=== PATIENT | female | born 1990 | race Caucasian/White ===

== ENCOUNTER → 2016-06-12 | Day surgery (SDC) | payer BC, OTHER ==
--- NOTE | 2016-06-11 21:55 | HHI.HP ---
HPI Chief Complaint Permanent sterilization Date Seen: Jun 12, 2016 Travel History International Travel<30 Days: No Contact w/Intl Traveler<30Days: No Known Affected Area: No History of Present Illness HPI Patient has requested permanent sterilization. She understands that she will not be able to have any more children. She also understands that the procedure increases her risks for ectopic . She is therefore admitted for outpatient surgery. Para: 2 : 2 Miscarriage: 0 : 0 History Past Medical History Narrative Medical Polycystic kidney disease Depression Anxiety Obstetric History Obstetric History Patient had 2 pregnancies and 2 vaginal deliveries Past Surgical History Narrative Surgical 2016 -- L/S cystectomy to remove a large dermoid cyst Family History Narrative Family History Mother -- malignant melanoma Social History Alcohol Use: No Tobacco Use: No Substance Abuse: No Allergies-Medications (Allergen,Severity, Reaction): Coded Allergies: No Known Allergies (Unverified , 01/27/16) Home Meds Reported Medications Miscellaneous ( Control Pills) Tab1 Tab PO DAILY 11/01/15 Discontinued Scripts Meloxicam (Mobic)15 Mg Tab15 Mg PO DAILY #20 TAB Prov:Glenn Roberts MD 01/27/16 Narrative Medication Gildess -- control pills Review of Systems General / Constitutional: No: Fever, Weight Gain, Chills, Other Eyes: No: Diploplia, Blurred Vision, Visual changes, Pain, Photophobia HENT: No: Headaches, Vertigo, Lightheadedness Cardiovascular: No: Irregular Rhythm, Chest Pain or Discomfort, Palpitations, Tachycardia, Syncope, Varicosities, Edema, Cyanosis Respiratory: No: Cough, Short of Breath, Other Gastrointestinal: No: Nausea, Vomiting, Diarrhea Genitourinary: No: Decreased Urinary Output, Oliguria Musculoskeletal: No: Limited ROM, Weakness, Cramping, Edema, Pain Skin: No Rash, No Itching, No Dryness, No Lumps, No Change in Pigmentation, No Change in Nails, No Alopecia, No Lesions Neurologic: No: Weakness, Dizziness, Syncope, Focal Abnormalities, Coordination Problem, Headache, Slurred Speech, Seizures Psychiatric: No: Depression, Suicidal Ideations, Homicidal Ideation Endocrine: No: Heat Intolerance, Cold Intolerance, Polydipsia, Polyuria, Other Physical Exam Narrative GENERAL: Well-nourished, well-developed patient. SKIN: Warm and dry. HEAD: Normocephalic and atraumatic. EYES: No scleral icterus. No injection or drainage. ENT: No nasal drainage noted. Mucous membranes pink. Airway patent. NECK: Supple, trachea midline. No JVD. CARDIOVASCULAR: Regular rate and rhythm without murmurs, gallops, or rubs. RESPIRATORY: Breath sounds equal bilaterally. No accessory muscle use. BREASTS: Bilateral exam showed no masses , no retractions, no nipple discharge. ABDOMEN/GI: Abdomen soft, non-tender, bowel sounds present, no rebound, no guarding GENITOURINARY: External Genitalia: intact and normal in appearance Uterus -- normal size, no adnexal masses EXTREMITIES: No cyanosis or edema. BACK: Nontender without obvious deformity. No CVA tenderness. NEUROLOGICAL: Awake and alert. Motor and sensory grossly within normal limits. Five out of 5 muscle strength in all muscle groups. Normal speech. Data Data Vital Signs Reviewed: Yes Assessment/Plan Problem List: (1) Encounter for female sterilization procedure Assessment and Plan 1. 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 discussed / reviewed the procedure -- laparoscopic tubal ligation 3. discussed the risks, benefits and alternatives of the procedure with the patient 4. discussed the risk of infection, bleeding, damage to vaginal burciaga and to internal organs (bowel, bladder, vessels, ureters, nerves), need for further treatment or procedures. 5. patient's questions were answered 6. she verbalized understanding 7. informed consent was obtained Va Villeda MD Jun 11, 2016 21:54
--- NOTE | 2016-06-11 22:29 | PD.OP ---
Operative Report Date of Surgery: Jun 12, 2016 Preoperative Diagnosis: (1) Encounter for female sterilization procedure (2) Endometriosis determined by laparoscopy Postoperative Diagnosis: (1) Encounter for female sterilization procedure (2) Endometriosis determined by laparoscopy Procedure: Laparoscopic bilateral tubal ligation Anesthesia: General Surgeon: Va Villeda Technical Services Specialist(s): Staff Operation and Findings: IVF: 750 ml + IV antibiotics given prior to surgery EBL: < 10 ml UO: 100 ml Findings: 1. pelvic adhesions 2. endometriosis 3. normal uterus, normal right ovary, left ovary surgically absent (previous surgery for ovarian mass) Specimens: none Complications: none Condition: stable Disposition: PACU Description of the procedure: The risks, benefits and alternatives of the procedure were discussed with patient. She wishes to proceed. Informed consent was obtained after questions were answered. The patient was then taken to the operating room with her IV running. She was placed in the supine position and was given general anesthesia without difficulties or complications. She was then placed in the dorsal lithotomy position and was prepped and draped in the usual sterile fashion. A bivalve speculum was placed inside the patient's vagina. The anterior aspect of the cervix was grasped with a single tooth tenaculum for manipulation. The cervix was carefully dilated. The uterus sounded to 8 cm. A AntCor uterine manipulator was placed inside the patient's uterus for manipulation. The rest of the instruments were removed from the patient's vagina.The surgeon changed gloves and attention was turned to the patient's abdomen. A vertical umbilical incision was made with the scalpel. A 5 mm trocar was carefully introduced inside the patient's abdomen. A pneumoperitoneum was created with CO2 gas. A survey of the patient's abdomen revealed normal anatomy. A survey of the patient's pelvis revealed the findings noted above. Another 5 mm trocar was placed inside the lower abdomen in the midline under direct visualization. Good hemostasis was noted. A Kleppinger was used to electrocauterize the right fallopian tube (about 1 inch section in the midline) . Scissors were used to cut the electrocauterized area. Excellent hemostasis was noted. The trocar in the lower abdomen was removed under direct visualization. Excellent hemostasis was noted. All instruments were removed from the patient's abdomen. The CO2 gas was carefully expressed out of the patient's abdomen. The umbilical fascial incision was closed with 0-Vicryl. The skin incisions were reapproximated with subcutaneous stitches using 4-0 Vicryl. Marcaine was injected in the skin incisions. Mastisol and steri strips were placed over the incisions. The patient tolerated the procedure well. She was successfully extubated and transferred to PACU in stable condition. Note: I discussed the surgical findings and procedures done with patient's . His questions were answered, he verbalized understanding and agreement. Va Villeda MD Jun 11, 2016 22:29
[~2016-06-12] MED LIST: HYDR-3534 PO; KETOROLAC TROMETHAMINE 30 MG/ML (IVP) VIAL IV PUSH ONE; LACTATED RINGER'S 1000 ML INJ 1,000 ML ONE; LIDOCAINE 1%/EPINEPHrine 1:100,000 SOLN 30 ML VIAL ONE; MIDAZOLAM HCL 2 MG/2 ML VIAL ONE; ONDANSETRON HCL 4 MG/2 ML VIAL IV PUSH ONE; PROPOFOL 200 MG/20 ML AMP IV ONE; Z.0.BCPILL PO; ceFAZolin 2 GM PREMIX 50 ML ONE; oxyCODONE/ACETAMINOPHEN 5 MG/325 MG TAB ONE
== END | disposition home or self-care (01) ==
LOC: ESDC 06:12
PROVIDERS: ATTEND Obstetrics & Gynecology
DX: Z30.2 Encounter for sterilization (principal); N80.9 Endometriosis, unspecified
CPT/HCPCS: J0690; J1885; J2250; J2405; J3010; J7120

== ENCOUNTER 2016-09-03 08:09 | Emergency (ER) | payer BC ==
[~2016-09-03] VITALS: Ht 160 cm; Wt 77.1 kg
[~2016-09-03 08:09] MED LIST changes: -HYDR-3534 PO; -KETOROLAC TROMETHAMINE 30 MG/ML (IVP) VIAL IV PUSH ONE; -LACTATED RINGER'S 1000 ML INJ 1,000 ML ONE; -LIDOCAINE 1%/EPINEPHrine 1:100,000 SOLN 30 ML VIAL ONE; -MIDAZOLAM HCL 2 MG/2 ML VIAL ONE; -ONDANSETRON HCL 4 MG/2 ML VIAL IV PUSH ONE; -PROPOFOL 200 MG/20 ML AMP IV ONE; -ceFAZolin 2 GM PREMIX 50 ML ONE; -oxyCODONE/ACETAMINOPHEN 5 MG/325 MG TAB ONE
[2016-09-03 08:14] VITALS: BP 138/93; PULSE 83; RESP 16; TEMP 98.3; O2SAT 100
[2016-09-03 08:35] LABS: BLOOD, URINE TRACE (NEG); GLUCOSE,URINE NEG (NEG); KETONE, URINE NEG (NEG); NITRITE,URINE NEG (NEG)
[2016-09-03 08:37] LABS: METHOD OF COLLECTION CLEAN CATCH
[2016-09-03 08:38] LABS: URINE COLOR YELLOW (YELLW/STRAW)
[2016-09-03 08:40] LABS: COMMENT (UR) CULT NOT INDICATED; CULTURE IF INDICATED CULT NOT INDICATED; RBC, URINE 0-3 /hpf (0-3); SQUAMOUS EPITHELIAL CELL URINE > 8 /hpf (0-5); WBC, URINE 0-2 /hpf (0-5)
[2016-09-03] MEDS ORDERED: SODIUM CHLOR 0.9% 1000 ML INJ 1,000 ML IV ONE (09:15)
[2016-09-03] MEDS ORDERED: ONDANSETRON HCL 4 MG/2 ML VIAL IV PUSH ONE (09:15)
[2016-09-03] MEDS ORDERED: HYDROmorphone HCL PF 1 MG/ML VIAL IV PUSH ONE (09:15)
--- NOTE | 2016-09-03 09:17 | PD ---
HPI Chief Complaint: Flank/Kidney Pain Time Seen by Provider: 08:59 Travel History International Travel<30 days: No Contact w/Intl Traveler<30days: No Traveled to known affect area: No History of Present Illness HPI This 26-year-old female who been having a lot of flank pain and abdominal pain. This has been Going on for several days. She has not been taking anything for pain. She has had a tubal ligation 2 months ago. She has a history of polycystic kidney disease. She has also had kidney stones in the past. She is not aware of fever or chills. There has not been any vomiting or diarrhea. She has noted some blood in the urine. PFSH Past Medical History Cardiovascular Problems: Yes (HTN) Diminished Hearing: No Genitourinary: Yes (POLYCYSTIC KIDNEY DISEASE) Kidney Stones: Yes ?: Not LMP: 08/30/16 : 2 Para: 1 Tubal Ligation: Yes Past Surgical History Gynecologic Surgery: Yes (LFT OOPHRECTOMY 09/2015 FOR MASS REMOVAL) Neurologic Surgery: Yes (CRANIAL SURGERY ) Social History Alcohol Use: No Tobacco Use: No Substance Use: No Allergies-Medications (Allergen,Severity, Reaction): Coded Allergies: No Known Allergies (Unverified , 09/03/16) Reported Meds & Prescriptions Reported Meds & Active Scripts Active No Active Prescriptions or Reported Medications Review of Systems General / Constitutional: No: Fever, Chills Eyes: No: Diploplia HENT: No: Headaches, Vertigo Cardiovascular: No: Chest Pain or Discomfort, Palpitations Respiratory: No: Cough, Shortness of Breath Gastrointestinal: Positive: Abdominal Pain, No: Nausea, Vomiting Genitourinary: Positive: Hematuria, Flank Pain Musculoskeletal: No: Myalgias Skin: No Rash, No Itching Physical Exam Narrative GENERAL: Well-developed female SKIN: Focused skin assessment warm/dry. HEAD: Atraumatic. Normocephalic. EYES: Pupils equal and round. No scleral icterus. No injection or drainage. ENT: No nasal bleeding or discharge. Mucous membranes pink and moist. NECK: Trachea midline. No JVD. CARDIOVASCULAR: Regular rate and rhythm. No murmur appreciated. RESPIRATORY: No accessory muscle use. Clear to auscultation. Breath sounds equal bilaterally. GASTROINTESTINAL: Abdomen soft, non-tender, nondistended. Hepatic and splenic margins not palpable. There is some bilateral flank tenderness MUSCULOSKELETAL: No obvious deformities. No clubbing. No cyanosis. No edema. NEUROLOGICAL: Awake and alert. No obvious cranial nerve deficits. Motor grossly within normal limits. Normal speech. PSYCHIATRIC: Appropriate mood and affect; insight and judgment normal. Data Data Last Documented VS Vital Signs Date Time Temp Pulse Resp B/P Pulse Ox O2 Delivery O2 Flow Rate FiO2 09/03/16 08:14 98.3 83 16 138/93 100 Orders Urinalysis - C+S If Indicated (09/03/16 08:16) Complete Blood Count With Diff (09/03/16 09:12) Basic Metabolic Panel (Bmp) (09/03/16 09:12) Ct Abd/Pel W/O Iv Contrast (09/03/16 09:12) Sodium Chlor 0.9% 1000 Ml Inj (Ns 1000 M (09/03/16 09:15) Ondansetron Inj (Zofran Inj) (09/03/16 09:15) Hydromorphone Pf Inj (Dilaudid Pf Inj) (09/03/16 09:15) Labs Laboratory Tests Test 09/03/16 09/03/16 08:18 09:30 Urine Collection Type CLEAN CATCH Urine Color YELLOW Urine Turbidity CLEAR Urine pH 6.0 Urine Specific [place] 1.013 Urine Protein NEG mg/dL Urine Glucose (UA) NEG mg/dL Urine Ketones NEG mg/dL Urine Occult Blood TRACE Urine Nitrite NEG Urine Bilirubin NEG Urine Leukocyte Esterase NEG Urine RBC 0-3 /hpf Urine WBC 0-2 /hpf Urine Squamous Epithelial > 8 /hpf Cells Microscopic Urinalysis Comment CULT NOT INDICATED Urine Collection Time 08:18 White Blood Count 7.1 TH/MM3 Red Blood Count 4.47 MIL/MM3 Hemoglobin 13.0 GM/DL Hematocrit 39.1 % Mean Corpuscular Volume 87.6 FL Mean Corpuscular Hemoglobin 29.2 PG Mean Corpuscular Hemoglobin 33.3 % Concent Red Cell Distribution Width 13.9 % Platelet Count 419 TH/MM3 Mean Platelet Volume 8.2 FL Neutrophils (%) (Auto) 72.8 % Lymphocytes (%) (Auto) 10.4 % Monocytes (%) (Auto) 9.7 % Eosinophils (%) (Auto) 3.0 % Basophils (%) (Auto) 4.1 % Neutrophils # (Auto) 5.2 TH/MM3 Lymphocytes # (Auto) 0.7 TH/MM3 Monocytes # (Auto) 0.7 TH/MM3 Eosinophils # (Auto) 0.2 TH/MM3 Basophils # (Auto) 0.3 TH/MM3 CBC Comment DIFF FINAL Differential Comment Sodium Level 141 MEQ/L Potassium Level 3.9 MEQ/L Chloride Level 105 MEQ/L Carbon Dioxide Level 26.3 MEQ/L Anion Gap 10 MEQ/L Blood Urea Nitrogen 19 MG/DL Creatinine 0.95 MG/DL Estimat Glomerular Filtration 70 ML/MIN Rate Random Glucose 85 MG/DL Calcium Level 8.6 MG/DL MDM Medical Decision Making Medical Screen Exam Complete: Yes Emergency Medical Condition: Yes Medical Record Reviewed: Yes Differential Diagnosis Differential includes UTI, renal colic, polycystic kidney Narrative Course AcT scan was done and there are multiple renal stones. There is not hydronephrosis or ureteral stone at this time. Patient does have pain fairly persistently. She has been taking some Tylenol which does not always help. I will prescribe some Lortab. I don't think she should be taking anti- inflammatory medication Diagnosis Primary Impression: Polycystic kidney disease Scripts Hydrocodone-Acetaminophen (Lortab)7.5-325 Mg Tab1 Tab PO Q4H PRN (PAIN) #30 TAB Ref 0 Prov:Surya Bauer MD 09/03/16 Disposition: 01 DISCHARGE HOME Condition: Stable Surya Bauer MD Sep 03, 2016 09:17
[2016-09-03 09:36] LABS: AUTOMATED NEUTROPHIL # 5.2 TH/MM3 (1.8-7.7); BASOPHIL # 0.3 TH/MM3 (0-0.2); BASOPHIL % 4.1 % (0.0-2.0); EOSINOPHIL # 0.2 TH/MM3 (0-0.4); HEMATOCRIT 39.1 % (35.0-46.0); HEMO FLAGS DIFF FINAL; LYMPH % 10.4 % (9.0-44.0); LYMPHOCYTE # 0.7 TH/MM3 (1.0-4.8); MEAN CELL VOLUME 87.6 FL (80.0-100.0); MEAN CORPUSCULAR HEMOGLOBIN 29.2 PG (27.0-34.0); MEAN CORPUSCULAR HGB CONC 33.3 % (32.0-36.0); MONO % 9.7 % (0.0-8.0); NEUT % 72.8 % (16.0-70.0); PLATELET COUNT 419 TH/MM3 (150-450); RED BLOOD COUNT 4.47 MIL/MM3 (4.00-5.30); RED CELL DISTRIBUTION WIDTH 13.9 % (11.6-17.2); WHITE BLOOD COUNT 7.1 TH/MM3 (4.0-11.0)
--- NOTE | 2016-09-03 09:50 | RADHPO ---
EXAM DATE/TIME: 09/03/2016 09:26 [facility] COMPARISON: CT ABDOMEN & PELVIS W/O CONTRAST, January 27, 2016, 17:10. INDICATIONS : Bilateral flank pain. Hematuria. ORAL CONTRAST: No oral contrast ingested. RADIATION DOSE: 14.16 CTDIvol (mGy) MEDICAL HISTORY : Renal calculi. Hypertension. Polycystic kidney disease. SURGICAL HISTORY : Tubal ligation. Left oophorectomy. ENCOUNTER: Initial ACUITY: 2 weeks PAIN SCALE: 7/10 LOCATION: Bilateral flank TECHNIQUE: Volumetric scanning of the abdomen and pelvis was performed. Using automated exposure control and ad justment of the mA and/or kV according to patient size, radiation dose was kept as low as reasonably achievable to obtain optimal diagnostic quality images. FINDINGS: CT Abdomen: The kidneys are enlarged bilaterally measuring 11.1 cm on the right and 14.8 cm on the le ft with numerous cortical cysts the largest one measures 2.9 cm on the right not significantly change d. The previously seen 4-5 mm stone in the right lower pole is larger measuring 5-6 mm in size. There are additional stones in the right kidney for a total of 7 separate stones ranging between a millime ter and 3 mm in size a slight degree of milk of calcium deposits in some of the cysts. In the left ki dney there are 2 separate stones measured measuring 3 mm and 4 mm may be slightly larger with some de gree of milk of calcium deposits with some of the cysts. There is no ureteral stone and there is no h ydronephrosis on either side. The liver, spleen, pancreas, adrenals are unremarkable. There is no ev idence for any appreciable pathological adenopathy, free fluid, or bowel obstruction. CT pelvis: There is no evidence for mass, abscess formation, or any significant adenopathy within the pelvis. CONCLUSION: Autosomal dominant polycystic kidney disease with multiple stones bilaterally some of which are slightly larger without any ureteral stone or hydronephrosis. Yamilet Cruz MD on September 03, 2016 at 9:41 Board Certified Radiologist. This report was verified electronically.
[2016-09-03 10:04] LABS: POTASSIUM 3.9 MEQ/L (3.5-5.1)
[2016-09-03 10:08] LABS: BICARBONATE 26.3 MEQ/L (21.0-32.0)
[2016-09-03] MEDS ORDERED: HYDR-3534 PO (10:19)
[2016-09-03 10:52] VITALS: BP 145/94; PULSE 83; RESP 14; O2SAT 100
== END 2016-09-03 11:24 | disposition home or self-care (01) ==
LOC: PHED 08:09
DX: Q61.3 Polycystic kidney, unspecified (principal); R31.9 Hematuria, unspecified; I10 Essential (primary) hypertension; Z87.442 Personal history of urinary calculi
CPT/HCPCS: 74176; 80048; 81001; 85025; 96361; 96374; 96375; 99284; J1170; J2405; J7030

== ENCOUNTER 2017-01-22 04:31 | Emergency (ER) | payer BC ==
[~2017-01-22] VITALS: Ht 162.6 cm; Wt 79.3 kg
[~2017-01-22 04:31] MED LIST changes: +CIPR-9 PO; +FLUO-1 PO; +LISI10TA3 PO; +MEDR4PAK PO; -Z.0.BCPILL PO
[2017-01-22 04:36] VITALS: BP 144/82; PULSE 75; RESP 14; TEMP 98; O2SAT 100
[2017-01-22] MEDS ORDERED: SODIUM CHLOR 0.9% 1000 ML INJ 1,000 ML IV ONE (04:47)
[2017-01-22 04:49] VITALS: BP 144/82; PULSE 75; RESP 18; TEMP 98; O2SAT 100
--- NOTE | 2017-01-22 04:58 | PD ---
HPI Chief Complaint: GI Complaint Time Seen by Provider: 04:47 Travel History International Travel<30 days: No Contact w/Intl Traveler<30days: No Traveled to known affect area: No History of Present Illness HPI 26-year-old female presents to the emergency department by private transportation for complaint of flank pain. Patient thinks that she is having exacerbation of her kidney stone history. Patient has history of polycystic kidney disease and ovarian cyst. Patient states that pain is moderate to severe. Patient's had associated nausea without vomiting. Patient denies dysuria frequency urgency. Patient denies vaginal bleeding or vaginal discharge. Patient states menstrual cycle is due soon. Patient denies . Patient is unable to identify exacerbating or alleviating factors. No fever or chills. PFSH Past Medical History Narrative Medical HTN, PCKD, kidney stones, anxiety, UTI's, oophorectomy, tubal ligation; no tobacco; nurses note reviewed Cardiovascular Problems: Yes (HTN) Diminished Hearing: No Genitourinary: Yes (POLYCYSTIC KIDNEY DISEASE) Kidney Stones: Yes ?: Unknown LMP: 12/22/16 : 2 Para: 1 Tubal Ligation: Yes Past Surgical History Gynecologic Surgery: Yes (LFT OOPHRECTOMY 09/2015 FOR MASS REMOVAL) Neurologic Surgery: Yes (CRANIAL SURGERY INFANT) Social History Alcohol Use: No Tobacco Use: No Substance Use: No Allergies-Medications (Allergen,Severity, Reaction): Coded Allergies: No Known Allergies (Unverified , 01/22/17) Reported Meds & Prescriptions Reported Meds & Active Scripts Active Prozac (Fluoxetine HCl) 10 Mg Cap 10 Mg PO DAILY Lisinopril 10 Mg Tab 10 Mg PO DAILY Review of Systems Except as stated in HPI: all other systems reviewed are Neg General / Constitutional: No: Fever, Chills HENT: No: Congestion Cardiovascular: No: Chest Pain or Discomfort Respiratory: No: Shortness of Breath Gastrointestinal: Positive: Nausea, No: Vomiting, Diarrhea Genitourinary: Positive: Frequency, Flank Pain Musculoskeletal: No: Myalgias, Arthralgias Skin: No Rash, No Itching Neurologic: No: Weakness Psychiatric: No: Anxiety Hematologic/Lymphatic: No: Lymph Node Enlargement Physical Exam Narrative GENERAL: Well-developed well-nourished female in no acute distress no respiratory distress skin: Nontoxic movement SKIN: Warm and dry. HEAD: Normocephalic. EYES: No scleral icterus. No injection or drainage. NECK: Supple, trachea midline. No JVD or lymphadenopathy. CARDIOVASCULAR: Regular rate and rhythm without murmurs, gallops, or rubs. RESPIRATORY: Breath sounds equal bilaterally. No accessory muscle use. GASTROINTESTINAL: Abdomen soft, diffusely tender to palpation without guarding or rebound, nondistended. MUSCULOSKELETAL: No cyanosis, or edema. BACK: Nontender without obvious deformity. Reports bilateral CVA tenderness to percussion. Data Data Last Documented VS Vital Signs Date Time Temp Pulse Resp B/P (MAP) Pulse Ox O2 Delivery O2 Flow Rate FiO2 01/22/17 04:52 18 01/22/17 04:49 98.0 75 144/82 (102) 100 Orders Orders Complete Blood Count With Diff (01/22/17 04:47) Basic Metabolic Panel (Bmp) (01/22/17 04:47) Urinalysis - C+S If Indicated (01/22/17 04:47) Ecg Monitoring (01/22/17 04:47) Iv Access Insert/Monitor (01/22/17 04:47) Ondansetron Inj (Zofran Inj) (01/22/17 05:00) Sodium Chloride 0.9% Flush (Ns Flush) (01/22/17 05:00) Sodium Chlor 0.9% 1000 Ml Inj (Ns 1000 M (01/22/17 04:47) Morphine Inj (Morphine Inj) (01/22/17 05:00) Ed Urine Pregnancytest Poc (01/22/17 04:47) Ct Abd/Pel W/O Iv Contrast (01/22/17 ) Labs Laboratory Tests Test 01/22/17 05:00 White Blood Count 6.9 TH/MM3 Red Blood Count 4.63 MIL/MM3 Hemoglobin 13.1 GM/DL Hematocrit 39.8 % Mean Corpuscular Volume 86.0 FL Mean Corpuscular Hemoglobin 28.3 PG Mean Corpuscular Hemoglobin Concent 32.9 % Red Cell Distribution Width 13.7 % Platelet Count 481 TH/MM3 Mean Platelet Volume 7.8 FL Neutrophils (%) (Auto) 63.3 % Lymphocytes (%) (Auto) 22.8 % Monocytes (%) (Auto) 8.7 % Eosinophils (%) (Auto) 4.5 % Basophils (%) (Auto) 0.7 % Neutrophils # (Auto) 4.4 TH/MM3 Lymphocytes # (Auto) 1.6 TH/MM3 Monocytes # (Auto) 0.6 TH/MM3 Eosinophils # (Auto) 0.3 TH/MM3 Basophils # (Auto) 0.0 TH/MM3 CBC Comment DIFF FINAL Differential Comment Urine Color STRAW Urine Turbidity SLIGHT Urine pH 7.0 Urine Specific [place] 1.015 Urine Protein NEG mg/dL Urine Glucose (UA) NEG mg/dL Urine Ketones NEG mg/dL Urine Occult Blood LARGE Urine Nitrite NEG Urine Bilirubin NEG Urine Leukocyte Esterase NEG Urine RBC 20-24 /hpf Urine WBC 3-5 /hpf Urine Squamous Epithelial Cells 0-5 /hpf Urine Bacteria OCC /hpf Microscopic Urinalysis Comment CULT NOT INDICATED Blood Urea Nitrogen 12 MG/DL Creatinine 0.93 MG/DL Random Glucose 90 MG/DL Calcium Level 8.9 MG/DL Sodium Level 140 MEQ/L Potassium Level 3.9 MEQ/L Chloride Level 106 MEQ/L Carbon Dioxide Level 25.8 MEQ/L Anion Gap 8 MEQ/L Estimat Glomerular Filtration Rate 72 ML/MIN [facility] Medical Decision Making Medical Screen Exam Complete: Yes Emergency Medical Condition: Yes Medical Record Reviewed: Yes Interpretation(s) POC hcg: negative UA: large blood CBC & BMP Diagram 01/22/17 05:00 Calcium Level 8.9 Vital Signs Date Time Temp Pulse Resp B/P (MAP) Pulse Ox O2 Delivery O2 Flow Rate FiO2 01/22/17 04:52 18 01/22/17 04:49 98.0 75 18 144/82 (102) 100 01/22/17 04:36 98.0 75 14 144/82 (102) 100 Differential Diagnosis Abdominal pain, flank pain, obstructive uropathy, ruptured renal cyst, , ectopic , UTI Narrative Course Specimens collected and sent for resulting Brittany Vizcaino MD Jan 22, 2017 04:58
[2017-01-22] MEDS ORDERED: MORPHINE SULFATE 4 MG/ML INJ IV PUSH ONE (05:00)
[2017-01-22] MEDS ORDERED: SODIUM CHLORIDE 0.9% FLUSH 10 ML FLUSH IVF PRN (05:00)
[2017-01-22] MEDS ORDERED: ONDANSETRON HCL 4 MG/2 ML VIAL IVP ONE (05:00)
[2017-01-22 05:12] LABS: BLOOD, URINE LARGE (NEG); GLUCOSE,URINE NEG (NEG); KETONE, URINE NEG (NEG); NITRITE,URINE NEG (NEG)
[2017-01-22 05:14] LABS: AUTOMATED NEUTROPHIL # 4.4 TH/MM3 (1.8-7.7); BASOPHIL % 0.7 % (0.0-2.0); EOSINOPHIL # 0.3 TH/MM3 (0-0.4); EOSINOPHIL % 4.5 % (0.0-4.0); HEMATOCRIT 39.8 % (35.0-46.0); HEMO FLAGS DIFF FINAL; LYMPH % 22.8 % (9.0-44.0); LYMPHOCYTE # 1.6 TH/MM3 (1.0-4.8); MEAN CORPUSCULAR HEMOGLOBIN 28.3 PG (27.0-34.0); MEAN CORPUSCULAR HGB CONC 32.9 % (32.0-36.0); MONO % 8.7 % (0.0-8.0); NEUT % 63.3 % (16.0-70.0); PLATELET COUNT 481 TH/MM3 (150-450); RED BLOOD COUNT 4.63 MIL/MM3 (4.00-5.30); RED CELL DISTRIBUTION WIDTH 13.7 % (11.6-17.2); WHITE BLOOD COUNT 6.9 TH/MM3 (4.0-11.0)
[2017-01-22 05:20] LABS: BACTERIA, URINE OCC /hpf; SQUAMOUS EPITHELIAL CELL URINE 0-5 /hpf (0-5); URINE COLOR STRAW (YELLW/STRAW)
[2017-01-22 05:21] LABS: COMMENT (UR) CULT NOT INDICATED; CULTURE IF INDICATED CULT NOT INDICATED
[2017-01-22 05:22] LABS: POTASSIUM 3.9 MEQ/L (3.5-5.1)
[2017-01-22 05:25] LABS: BICARBONATE 25.8 MEQ/L (21.0-32.0)
[2017-01-22 06:19] VITALS: BP 129/90; PULSE 68; RESP 18; O2SAT 99
--- NOTE | 2017-01-22 06:35 | RADRPT ---
EXAM DATE/TIME: 01/22/2017 05:37 [facility] COMPARISON: CT ABDOMEN & PELVIS W/O CONTRAST, September 03, 2016, 9:26. INDICATIONS : Lower abdominal and back pain for 2 weeks. ORAL CONTRAST: No oral contrast ingested. RADIATION DOSE: 12.02 CTDIvol (mGy) MEDICAL HISTORY : Renal calculi. Hypertension. polycystic kidney disease SURGICAL HISTORY : Tubal ligation. Left oophrectomy ENCOUNTER: Initial ACUITY: 2 weeks PAIN SCALE: 9/10 LOCATION: Bilateral lower quadrant TECHNIQUE: Volumetric scanning of the abdomen and pelvis was performed. Using automated exposure control and ad justment of the mA and/or kV according to patient size, radiation dose was kept as low as reasonably achievable to obtain optimal diagnostic quality images. DICOM format image data is available electro nically for review and comparison. FINDINGS: LOWER LUNGS: The visualized lower lungs are clear. LIVER: Homogeneous density without lesion. There is no dilation of the biliary tree. No calcified gallston es. SPLEEN: Normal size without lesion. PANCREAS: Within normal limits. KIDNEYS: Kidneys are again enlarged bilaterally with numerous bilateral cysts. Several cysts are iso-to hyperd ense and are unchanged in appearance from prior exam. There are multiple right-sided calcified calcul i ranging in size from 1 mm to 6 mm in the mid posterior right kidney. These appear unchanged from pr ior exam. A there are 2 calcified renal calculi measuring approximately 3-4 mm in the inferior pole o f the left kidney and are also unchanged from prior exam. No new renal calculi are demonstrated. Ther e is no hydronephrosis or ureteral calculi. ADRENAL GLANDS: Within normal limits. VASCULAR: There is no aortic aneurysm. BOWEL/MESENTERY: The stomach, small bowel, and colon demonstrate no acute abnormality. Appendix is not directly visual ized however there is no significant inflammatory changes in the pericecal region. There is no free i ntraperitoneal air or fluid. ABDOMINAL WALL: Within normal limits. RETROPERITONEUM: There is no lymphadenopathy. BLADDER: Mildly distended without evidence for radiopaque calculi. REPRODUCTIVE: Within normal limits. INGUINAL: There is no lymphadenopathy or hernia. MUSCULOSKELETAL: Within normal limits for patient age. CONCLUSION: 1. Changes consistent with autosomal dominant polycystic kidney disease with multiple bilateral stabl e nonobstructing renal calculi. No evidence for obstructive uropathy. 2. Appendix is not directly visualized. However, there is no significant inflammatory changes in the pericecal region. 3. Otherwise, unremarkable CT examination of the abdomen and pelvis. Leopoldo Mike MD on January 22, 2017 at 6:25 Board Certified Radiologist. This report was verified electronically.
[2017-01-22] MEDS ORDERED: PERC5TAB12 PO (06:50)
[2017-01-22] MEDS ORDERED: ZOFR4TAB3 SL (06:50)
== END 2017-01-22 07:15 | disposition home or self-care (01) ==
LOC: PHED 04:31
DX: N23 Unspecified renal colic (principal); Q61.2 Polycystic kidney, adult type
CPT/HCPCS: 74176; 80048; 81001; 84703; 85025; 96361; 96374; 96375; 99285; J2270; J2405; J7030

== ENCOUNTER → 2017-03-09 | Day surgery (SDC) | payer BC ==
[~2017-03-09] VITALS: Ht 162.6 cm; Wt 75.0 kg
[~2017-03-09] MED LIST changes: +AMPICILLIN/SULBAC 3 GM/NS 100 ML IV PRN; +CHLORHEXIDINE GLUCONATE 2 % 1 PACK (2 CLOTHS) TOPICAL PRN; -CIPR-9 PO; +FAMOTIDINE 20 MG/2 ML VIAL ONE; +INSULIN HUMAN REGULAR 1,000 UNITS/10 ML VIAL SQ PRN; +LACTATED RINGER'S 1000 ML IV PRN; -MEDR4PAK PO; +METOPROLOL TARTRATE 25 MG TAB PO PRN; +MICROFIBRILLAR COLLAGEN HEMOSTAT 1 GM PKT ONE; +MIDAZOLAM HCL 2 MG/2 ML VIAL ONE; +MORPHINE SULFATE 4 MG/ML INJ ONE; +ONDANSETRON HCL 4 MG/2 ML VIAL IV PUSH ONE; +ONDANSETRON HCL 4 MG/2 ML VIAL ONE; +OXYMETAZOLINE HCL 0.05% 15 ML NASAL SPRAY ONE; +PERC5TAB12 PO; +POVIDONE IODINE 5% (ANTISEPSIS KIT) 4 APPLICATIONS EACH NARE PRN; +PROPOFOL 200 MG/20 ML AMP IV ONE; +SODIUM CHLOR 0.9% 1000 ML INJ 1,000 ML ONE; +SODIUM CHLORID 0.9% 500 ML IV PRN; +SODIUM CHLORIDE 0.9% INJ 100 ML ONE; +ZOFR4TAB3 SL
[2017-03-09 13:15] VITALS: PULSE 89
[2017-03-09 15:15] VITALS: BP 148/90; PULSE 90; RESP 16; TEMP 98.7; O2SAT 99
--- NOTE | 2017-03-09 22:06 | MP ---
cc: BETY HO MD DATE OF SURGERY 03/09/17 PREOPERATIVE DIAGNOSIS 1. Adenotonsillar hypertrophy 2. Chronic tonsillitis POSTOPERATIVE DIAGNOSIS 1. Adenotonsillar hypertrophy 2. Chronic tonsillitis OPERATION PERFORMED Adenotonsillectomy INDICATIONS Documented history and physical. DESCRIPTION OF OPERATION The patient was taken to OR #2 and placed in the supine position. Following induction of general anesthesia and intubation, a shoulder roll, a Kevin head drape and a McIvor mouth gag were put in place. The tonsils were removed using the ArthroCare Coblator technique. Numerous sites of venous and arterial bleeding were cauterized using the bipolar and monopolar cautery. The tonsil fossa were packed with tonsil sponge packs saturated in Oxymetazoline which had been in place for a period of 3 minutes. They were then removed and replaced with Avitene microfibrils. Next, the adenoids were removed using the suction Bovie at 45 serra and the stomach was aspirated of several mL of cloudy gastric contents using a #18 [place] sump NG tube. When this was completed, the mouth gag was removed and the procedure was terminated. The patient was reversed from anesthesia and taken to recovery in good condition. There were no complications. Blood loss was 16 mL. MD RICCARDO Rouse/ /1:01 PM /9:59 PM
== END | disposition home or self-care (01) ==
LOC: PHSDC 08:19
PROVIDERS: ATTEND Otolaryngology
DX: J35.01 Chronic tonsillitis (principal); J35.3 Hypertrophy of tonsils with hypertrophy of adenoids; R49.0 Dysphonia
CPT/HCPCS: 00170; 42821; 88304; J0295; J2250; J2270; J2405; J3010; J7030

== ENCOUNTER 2017-08-09 16:01 | Emergency (ER) | payer BC ==
[~2017-08-09] VITALS: Ht 165.1 cm; Wt 88.7 kg
[~2017-08-09 16:01] MED LIST changes: +ALPR.5 PO; -AMPICILLIN/SULBAC 3 GM/NS 100 ML IV PRN; -CHLORHEXIDINE GLUCONATE 2 % 1 PACK (2 CLOTHS) TOPICAL PRN; +CIPR0.3S RIGHT EAR; +DIFL150T PO; -FAMOTIDINE 20 MG/2 ML VIAL ONE; -INSULIN HUMAN REGULAR 1,000 UNITS/10 ML VIAL SQ PRN; -LACTATED RINGER'S 1000 ML IV PRN; +LUNE1TAB8 PO; +MACR100C2 PO; +MECL-62 PO; -METOPROLOL TARTRATE 25 MG TAB PO PRN; -MICROFIBRILLAR COLLAGEN HEMOSTAT 1 GM PKT ONE; -MIDAZOLAM HCL 2 MG/2 ML VIAL ONE; -MORPHINE SULFATE 4 MG/ML INJ ONE; -ONDANSETRON HCL 4 MG/2 ML VIAL IV PUSH ONE; -ONDANSETRON HCL 4 MG/2 ML VIAL ONE; -OXYMETAZOLINE HCL 0.05% 15 ML NASAL SPRAY ONE; -PERC5TAB12 PO; -POVIDONE IODINE 5% (ANTISEPSIS KIT) 4 APPLICATIONS EACH NARE PRN; -PROPOFOL 200 MG/20 ML AMP IV ONE; -SODIUM CHLOR 0.9% 1000 ML INJ 1,000 ML ONE; -SODIUM CHLORID 0.9% 500 ML IV PRN; -SODIUM CHLORIDE 0.9% INJ 100 ML ONE; -ZOFR4TAB3 SL
[2017-08-09 16:03] VITALS: BP 118/77; PULSE 72; RESP 16; TEMP 98.7; O2SAT 100
--- NOTE | 2017-08-09 16:15 | PD ---
HPI Chief Complaint: Flank/Kidney Pain Time Seen by Provider: 16:15 Travel History International Travel<30 days: No Contact w/Intl Traveler<30days: No Traveled to known affect area: No History of Present Illness HPI 27-year-old female came to the emergency room with history of left flank pain for past 3 days. Patient says she has history of flank pain and frequent UTIs. She has polycystic kidney disease. She sees a restaurant host/hostess for the polycystic kidney disease. As per her multiple blood test showed acceptable renal function. No history of fever or chills. No history of nausea vomiting. Vital signs were stable. No history of fever or chills. No history of hematuria. PFSH Past Medical History Narrative Medical List of her past medical, surgical, social and family history is reviewed from the nursing note. Cancer: No Cardiovascular Problems: No Diabetes: No Diminished Hearing: No Endocrine: No Genitourinary: Yes (POLYCYSTIC KIDNEY DISEASE) Hepatitis: No Immune Disorder: No Kidney Stones: Yes Musculoskeletal: No Neurologic: No Psychiatric: No Reproductive: No Respiratory: No Thyroid Disease: No ?: Not : 2 Para: 1 Tubal Ligation: Yes Past Surgical History Abdominal Surgery: No AICD: No Cardiac Surgery: No Ear Surgery: No Endocrine Surgery: No Eye Surgery: No Genitourinary Surgery: No Gynecologic Surgery: Yes (LFT OOPHRECTOMY 09/2015 FOR MASS REMOVAL, TUBAL LIGATION) Joint Replacement: No Neurologic Surgery: Yes (CRANIAL SURGERY INFANT) Oral Surgery: No Pacemaker: No Thoracic Surgery: No Social History Alcohol Use: No Tobacco Use: No Substance Use: No Allergies-Medications (Allergen,Severity, Reaction): Coded Allergies: No Known Allergies (Verified Allergy, Unknown, 08/09/17) Comments No known drug allergies. Reported Meds & Prescriptions Reported Meds & Active Scripts Active Lisinopril 10 Mg Tab 10 Mg PO DAILY Reported Abilify (Aripiprazole) 15 Mg Tab 15 Mg PO DAILY Xanax (Alprazolam) 0.5 Mg Tab 0.5 Mg PO Q8H PRN Lunesta (Eszopiclone) 1 Mg Tab 1 Mg PO HS PRN Narrative Medication List of her home medications reviewed from the nursing note. Review of Systems Except as stated in HPI: all other systems reviewed are Neg Genitourinary: Positive: Flank Pain Physical Exam Narrative GENERAL: Awake, alert, no obvious distress SKIN: Focused skin assessment warm/dry. HEAD: Atraumatic. Normocephalic. EYES: Pupils equal and round. No scleral icterus. No injection or drainage. ENT: No nasal bleeding or discharge. Mucous membranes pink and moist. NECK: Trachea midline. No JVD. CARDIOVASCULAR: Regular rate and rhythm. No murmur appreciated. RESPIRATORY: No accessory muscle use. Clear to auscultation. Breath sounds equal bilaterally. GASTROINTESTINAL: Abdomen soft, non-tender, nondistended. Hepatic and splenic margins not palpable. MUSCULOSKELETAL: No obvious deformities. No clubbing. No cyanosis. No edema. NEUROLOGICAL: Awake and alert. No obvious cranial nerve deficits. Motor grossly within normal limits. Normal speech. PSYCHIATRIC: Appropriate mood and affect; insight and judgment normal. Data Data Last Documented VS Orders Orders Complete Blood Count With Diff (08/09/17 16:31) Basic Metabolic Panel (Bmp) (08/09/17 16:31) Urinalysis - C+S If Indicated (08/09/17 16:31) Ed Urine Pregnancytest Poc (08/09/17 16:31) Ecg Monitoring (08/09/17 16:31) Iv Access Insert/Monitor (08/09/17 16:31) Sodium Chloride 0.9% Flush (Ns Flush) (08/09/17 16:45) Acetamin-Hydrocod 325-5 Mg ([place] 5-325 (08/09/17 16:45) Ed Discharge Order (08/09/17 17:36) Labs Laboratory Tests Test 08/09/17 16:58 White Blood Count 10.1 TH/MM3 Red Blood Count 4.32 MIL/MM3 Hemoglobin 11.6 GM/DL Hematocrit 35.5 % Mean Corpuscular Volume 82.1 FL Mean Corpuscular Hemoglobin 26.9 PG Mean Corpuscular Hemoglobin Concent 32.8 % Red Cell Distribution Width 14.9 % Platelet Count 521 TH/MM3 Mean Platelet Volume 7.7 FL Neutrophils (%) (Auto) 61.4 % Lymphocytes (%) (Auto) 22.9 % Monocytes (%) (Auto) 6.7 % Eosinophils (%) (Auto) 7.2 % Basophils (%) (Auto) 1.8 % Neutrophils # (Auto) 6.2 TH/MM3 Lymphocytes # (Auto) 2.3 TH/MM3 Monocytes # (Auto) 0.7 TH/MM3 Eosinophils # (Auto) 0.7 TH/MM3 Basophils # (Auto) 0.2 TH/MM3 CBC Comment DIFF FINAL Differential Comment Urine Color YELLOW Urine Turbidity CLEAR Urine pH 5.5 Urine Specific [place] 1.025 Urine Protein NEG mg/dL Urine Glucose (UA) NEG mg/dL Urine Ketones NEG mg/dL Urine Occult Blood LARGE Urine Nitrite NEG Urine Bilirubin NEG Urine Urobilinogen 0.2 MG/DL Urine Leukocyte Esterase NEG Urine RBC 4-9 /hpf Urine WBC 3-5 /hpf Urine Squamous Epithelial Cells 0-5 /hpf Urine Mucus MOD /lpf Microscopic Urinalysis Comment CULT NOT INDICATED Blood Urea Nitrogen 16 MG/DL Creatinine 0.93 MG/DL Random Glucose 81 MG/DL Calcium Level 8.5 MG/DL Sodium Level 141 MEQ/L Potassium Level 4.7 MEQ/L Chloride Level 109 MEQ/L Carbon Dioxide Level 25.7 MEQ/L Anion Gap 6 MEQ/L Estimat Glomerular Filtration Rate 71 ML/MIN MDM Medical Decision Making Medical Screen Exam Complete: Yes Emergency Medical Condition: Yes Medical Record Reviewed: Yes Differential Diagnosis UTI, pyelonephritis, musculoskeletal pain, acute on chronic pain Narrative Course 5 PM. Awaiting for blood test results and UA. Patient was medicated for pain. 5:34 PM blood test results are within acceptable limits. UA shows some rbc's. Patient will be discharged home. Procedures EKG Prior to Arrival: No Diagnosis Primary Impression: Acute exacerbation of chronic low back pain Referrals: Primary Care Physician Additional Instructions: Return to the ER if condition worsens or any other new concerns. Otherwise follow-up with your primary care. Med/Other Pt SpecificInfo: No Change to Meds Disposition: 01 DISCHARGE HOME Condition: Stable Madeleine Merino MD Aug 09, 2017 16:15
[2017-08-09] MEDS ORDERED: ABIL15TA3 PO (16:25)
[2017-08-09] MEDS ORDERED: ACETAMINOPHEN/HYDROcodone 325 MG/5 MG TAB PO ONE (16:45)
[2017-08-09] MEDS ORDERED: SODIUM CHLORIDE 0.9% FLUSH 10 ML FLUSH IVF PRN (16:45)
[2017-08-09 17:02] LABS: AUTOMATED NEUTROPHIL # 6.2 TH/MM3 (1.8-7.7); BASOPHIL # 0.2 TH/MM3 (0-0.2); BASOPHIL % 1.8 % (0.0-2.0); EOSINOPHIL # 0.7 TH/MM3 (0-0.4); EOSINOPHIL % 7.2 % (0.0-4.0); HEMATOCRIT 35.5 % (35.0-46.0); HEMOGLOBIN 11.6 GM/DL (11.6-15.3); LYMPH % 22.9 % (9.0-44.0); LYMPHOCYTE # 2.3 TH/MM3 (1.0-4.8); MEAN CELL VOLUME 82.1 FL (80.0-100.0); MEAN CORPUSCULAR HEMOGLOBIN 26.9 PG (27.0-34.0); MEAN CORPUSCULAR HGB CONC 32.8 % (32.0-36.0); MEAN PLATELET VOLUME 7.7 FL (7.0-11.0); MONO % 6.7 % (0.0-8.0); MONOCYTE # 0.7 TH/MM3 (0-0.9); NEUT % 61.4 % (16.0-70.0); PLATELET COUNT 521 TH/MM3 (150-450); RED BLOOD COUNT 4.32 MIL/MM3 (4.00-5.30); RED CELL DISTRIBUTION WIDTH 14.9 % (11.6-17.2); WHITE BLOOD COUNT 10.1 TH/MM3 (4.0-11.0)
[2017-08-09 17:03] LABS: BILIRUBIN, URINE NEG (NEG); BLOOD, URINE LARGE (NEG); GLUCOSE,URINE NEG (NEG); KETONE, URINE NEG (NEG); NITRITE,URINE NEG (NEG); PH, URINE 5.5 (5.0-8.5); URINE COLOR YELLOW (YELLW/STRAW); URINE LEUKOCYTE ESTERASE NEG (NEG)
[2017-08-09 17:11] LABS: CALCIUM 8.5 MG/DL (8.5-10.1)
[2017-08-09 17:12] LABS: BICARBONATE 25.7 MEQ/L (21.0-32.0)
[2017-08-09 17:15] LABS: CREATININE 0.93 MG/DL (0.50-1.00)
[2017-08-09 17:30] LABS: MUCUS URINE MOD /lpf (OCC); SQUAMOUS EPITHELIAL CELL URINE 0-5 /hpf (0-5)
[2017-08-09 18:06] VITALS: BP 112/75
== END 2017-08-09 18:12 | disposition home or self-care (01) ==
LOC: PHED 16:01
DX: M54.5 Low back pain (principal); G89.29 Other chronic pain; Q61.3 Polycystic kidney, unspecified; Z79.899 Other long term (current) drug therapy; Z87.442 Personal history of urinary calculi
CPT/HCPCS: 80048; 81001; 84703; 85025; 99283